=== PATIENT | male | born 1965 | race Asian ===

== ENCOUNTER 2018-05-08 21:33 | Inpatient (IN) | payer OTHER ==
[2018-05-08 22:48] LABS: ADD MAN DIFF? NO
[2018-05-08] MEDS: NITROGLYCERIN (SL) 0.4 MG TAB SL (22:52)
[2018-05-08 22:53] LABS: BASOPHIL # 0.1 10^3/ul (0.0-0.1); BASOPHILS % 0.7 % (0.0-2.0); EOSINOPHILS # 0.3 10^3/ul (0.0-0.5); EOSINOPHILS % 3.6 % (0.0-7.0); HEMOGLOBIN 15.9 g/dl (14.0-18.0); LYMPHOCYTES # 2.8 10^3/ul (0.8-2.9); LYMPHOCYTES % 33.8 % (15.0-51.0); MEAN CORPUSCULAR HGB CONC 33.8 g/dl (32.0-37.0); MEAN CORPUSCULAR VOLUME 94.6 fl (82.0-101.0); MEAN PLATELET VOLUME 9.9 fl (7.4-10.4); MONOCYTE # 0.8 10^3/ul (0.3-0.9); MONOCYTES % 9.7 % (0.0-11.0); NEUTROPHIL # 4.3 10^3/ul (1.6-7.5); NEUTROPHILS % 52.1 % (39.0-77.0); PLATELET COUNT 202 10^3/UL (140-415); RED BLOOD COUNT 4.97 10^6/ul (4.70-6.10); RED CELL DISTRIBUTION WIDTH 12.2 % (11.5-14.5)
[2018-05-08 22:53] LABS: WHITE BLOOD COUNT 8.3 10^3/ul (4.8-10.8)
[2018-05-08] MEDS: ASPIRIN 81 MG TAB PO (22:53)
[2018-05-08 23:11] LABS: ALANINE AMINOTRANSFERASE 52 IU/L (13-69); ALBUMIN 4.4 g/dl (3.3-4.9); ALBUMIN/GLOBULIN RATIO 1.25; ALKALINE PHOSPHATASE 59 IU/L (42-121); ANION GAP 12 (8-16); ASPARTATE AMINO TRANSFERASE 36 IU/L (15-46); BILIRUBIN,INDIRECT 0.6 mg/dl (0-1.1); BILIRUBIN,TOTAL 0.6 mg/dl (0.2-1.3); BLOOD UREA NITROGEN 20 mg/dl (7-20); CALCIUM 9.9 mg/dl (8.4-10.2); CARBON DIOXIDE 31 mmol/L (21-31); CHLORIDE 101 mmol/L (97-110); CREATININE 0.87 mg/dl (0.61-1.24); GLUCOSE 108 mg/dl (70-220); LIPASE 100 U/L (23-300); POTASSIUM 3.7 mmol/L (3.5-5.1); SODIUM 140 mmol/L (135-144); TOTAL PROTEIN 7.9 g/dl (6.1-8.1)
[2018-05-08 23:23] LABS: B-TYPE NATRIURETIC PEPTIDE 64 PG/ML (0-125); TROPONIN-I < 0.010 ng/ml (0.000-0.120)
[2018-05-09] MEDS ORDERED: ZOLPIDEM 5 MG TAB PO (04:00)
[2018-05-09] MEDS ORDERED: MECLIZINE 25 MG TAB PO (04:00)
[2018-05-09] MEDS ORDERED: ACETAMINOPHEN 325 MG TAB PO (04:00)
[2018-05-09] MEDS: PANTOPRAZOLE 40 MG INJ IV (05:10)
[2018-05-09] MEDS: ONDANSETRON 4 MG INJ IV (05:10)
[2018-05-09 07:43] LABS: TROPONIN-I < 0.010 ng/ml (0.000-0.120)
[2018-05-09 12:08] LABS: TROPONIN-I < 0.010 ng/ml (0.000-0.120)
[2018-05-09] MEDS ORDERED: NITROGLYCERIN (SL) 0.4 MG TAB SL (16:00)
[2018-05-09 17:29] LABS: TROPONIN-I < 0.010 ng/ml (0.000-0.120)
[2018-05-10] MEDS: PANTOPRAZOLE 40 MG INJ IV (05:13)
[2018-05-10 07:24] LABS: ADD MAN DIFF? NO
[2018-05-10 07:26] LABS: WHITE BLOOD COUNT 6.2 10^3/ul (4.8-10.8)
[2018-05-10 07:27] LABS: BASOPHIL # 0.1 10^3/ul (0.0-0.1); BASOPHILS % 0.8 % (0.0-2.0); EOSINOPHILS # 0.3 10^3/ul (0.0-0.5); EOSINOPHILS % 5.2 % (0.0-7.0); HEMATOCRIT 47.8 % (42.0-52.0); HEMOGLOBIN 15.7 g/dl (14.0-18.0); LYMPHOCYTES # 1.8 10^3/ul (0.8-2.9); LYMPHOCYTES % 29.3 % (15.0-51.0); MEAN CORPUSCULAR HEMOGLOBIN 31.2 pg (29.0-33.0); MEAN CORPUSCULAR HGB CONC 32.8 g/dl (32.0-37.0); MEAN CORPUSCULAR VOLUME 94.8 fl (82.0-101.0); MEAN PLATELET VOLUME 10.2 fl (7.4-10.4); MONOCYTE # 0.6 10^3/ul (0.3-0.9); MONOCYTES % 8.9 % (0.0-11.0); NEUTROPHIL # 3.4 10^3/ul (1.6-7.5); NEUTROPHILS % 55.6 % (39.0-77.0); PLATELET COUNT 204 10^3/UL (140-415); RED BLOOD COUNT 5.04 10^6/ul (4.70-6.10); RED CELL DISTRIBUTION WIDTH 12.5 % (11.5-14.5)
[2018-05-10 08:01] LABS: ALANINE AMINOTRANSFERASE 51 IU/L (13-69); ALBUMIN/GLOBULIN RATIO 1.33; ALKALINE PHOSPHATASE 47 IU/L (42-121); ANION GAP 13 (8-16); ASPARTATE AMINO TRANSFERASE 32 IU/L (15-46); BILIRUBIN,INDIRECT 0.8 mg/dl (0-1.1); BILIRUBIN,TOTAL 0.8 mg/dl (0.2-1.3); BLOOD UREA NITROGEN 13 mg/dl (7-20); CALCIUM 8.9 mg/dl (8.4-10.2); CARBON DIOXIDE 31 mmol/L (21-31); CHLORIDE 103 mmol/L (97-110); CREATININE 0.83 mg/dl (0.61-1.24); GLUCOSE 97 mg/dl (70-220); POTASSIUM 4.7 mmol/L (3.5-5.1); SODIUM 142 mmol/L (135-144)
[2018-05-10 08:04] LABS: CHOL/HDL RATIO 3.2 RATIO; HDL CHOLESTEROL 38 mg/dl (28-71); LDL CHOLESTEROL,CALCULATED 66 mg/dl; TRIGLYCERIDES 103 mg/dl (0-149)
[2018-05-10 08:04] LABS: CHOLESTEROL 125 mg/dl (100-200)
[2018-05-10 08:09] LABS: TROPONIN-I < 0.010 ng/ml (0.000-0.120)
[2018-05-10] MEDS: ASPIRIN 81 MG TAB PO (09:00)
[2018-05-10] MEDS: REGADENOSON 0.4 MG/5 ML SYG (12:45)
== END 2018-05-10 18:15 | disposition home or self-care (01) | DRG 313 ==
LOC: TEL 23:36 → E/R 21:33
DX: R07.89 Other chest pain (principal); G45.9 Transient cerebral ischemic attack, unspecified; I10 Essential (primary) hypertension; K76.0 Fatty (change of) liver, not elsewhere classified; R42 Dizziness and giddiness; E78.5 Hyperlipidemia, unspecified
CPT/HCPCS: 36415; 71045; 78452; 80053; 80061; 83690; 83880; 84443; 84484; 85025; 93005; 93017; 93306; 99285-25